=== PATIENT | female | born 1950 | race Two or more races ===

== ENCOUNTER 2022-01-22 16:13 | Emergency (ER) | payer MEDICARE, OTHER ==
[~2022-01-22] VITALS: Ht 152.4 cm; Wt 71.0 kg
[2022-01-22] MEDS ORDERED: NAP500T PO (20:49)
[2022-01-22 22:00] VITALS: BP 159/95
== END 2022-01-22 22:23 | disposition home or self-care (01) ==
LOC: ER 16:13
DX: M47.812 Spondylosis without myelopathy or radiculopathy, cervical region (principal)
CPT/HCPCS: 72125